=== PATIENT | male | born 1980 ===

== ENCOUNTER → 2024-07-31 | Outpatient (CLI) | payer BC, SELFPAY ==
--- NOTE | 2024-07-31 16:30 | XR_ITS ---
Examination: Testicular sonography complete TECHNIQUE: Grayscale sonographic images testes, assessment arterial inflow venous outflow Doppler spectral analysis carful analysis July 31, 2024 1617 hours Comparison Dec 24 2022 INDICATIONS: Bilateral testicular pain one year FINDINGS: Right testis 4.4 x 2.5 x 3.6 cm Epididymis 16mm Arterial flow testicle. No testicular mass Left testis 4.6 x 2.5 x 3.5 cm Epididymis 19 mm Arterial flow testicle. No testicular mass IMPRESSION: Negative study
== END | disposition home or self-care (01) ==
LOC: CDIM 16:03
PROVIDERS: Referring Provider Urology; Visit Provider Urology
DX: N50.812 Left testicular pain (principal); N50.811 Right testicular pain
CPT/HCPCS: 76870